=== PATIENT | male | born 1955 | race Caucasian/White ===

== ENCOUNTER 2016-08-11 07:45 | Day surgery (SDC) | payer OTHER ==
[2016-08-05 14:37] VITALS: BMI 41.5
--- NOTE | 2016-08-11 01:52 | P.GSHP ---
History of Present Illness H&P Date: 08/11/16 CHIEF COMPLAINT: GERD and colon screen HISTORY OF PRESENT ILLNESS: The patient is a 60-year-old male who presents reports gastroesophageal reflux disease and need for colon screen. Upper and lower endoscopy were offered for further evaluation and management. PAST MEDICAL HISTORY: Please see list. PAST SURGICAL HISTORY: Please see list. MEDICATIONS: Please see list. ALLERGIES: Please see list. SOCIAL HISTORY: No illicit drug use FAMILY HISTORY: No reports of Crohn disease or ulcerative colitis. REVIEW OF ORGAN SYSTEMS: CONSTITUTIONAL: No reports of fevers or chills. GI: Denies any blood in stools or constipation. PHYSICAL EXAM: VITAL SIGNS: Stable GENERAL: Well-developed pleasant in no acute distress. HEENT: No scleral icterus. Extraocular movements grossly intact. Moist buccal mucosa. NECK: Supple without lymphadenopathy. CHEST: Unlabored respirations. Equal bilateral excursions. CARDIOVASCULAR: Regular rate and rhythm. Distal 2+ pulses. ABDOMEN: Soft, nondistended. MUSCULOSKELETAL: No clubbing, cyanosis, or edema. ASSESSMENT: 1. Gastroesophageal reflux disease 2. Colon screen. PLAN: 1. Recommend proceeding with an upper and lower endoscopy Past Medical History Past Medical History: Hyperlipidemia, Osteoarthritis (OA) Additional Past Medical History / Comment(s): SEASONAL ALLERGIES. LOW IRON- TAKE OTC IRON History of Any Multi-Drug Resistant Organisms: None Reported Past Surgical History: Adenoidectomy, Joint Replacement, Orthopedic Surgery, Tonsillectomy Additional Past Surgical History / Comment(s): STEPHIE KNEE ARTHROSCOPY, SPLEENECTOMY, FOREFINGER LEFT HAND SX, BILAT TKA, Past Anesthesia/Blood Transfusion Reactions: No Reported Reaction Past Psychological History: No Psychological Hx Reported Smoking Status: Former smoker Past Alcohol Use History: None Reported Additional Past Alcohol Use History / Comment(s): STARTED SMOKING AT AGE 16- 1 PPD X 21 YEARS QUIT 1993 Past Drug Use History: None Reported - Past Family History Father Family Medical History: No Reported History Additional Family Medical History / Comment(s): CABG Mother Family Medical History: No Reported History Medications and Allergies Home Medications Medication Instructions Recorded Confirmed Type Loratadine [Claritin] 10 mg PO HS 10/25/14 08/05/16 History Simvastatin [Zocor] 20 mg PO HS 10/25/14 08/05/16 History Ferrous Sulfate [Iron (65 MG 325 mg PO DAILY 08/05/16 08/05/16 History Elemental)] Ibuprofen [Motrin] 800 mg PO DAILY PRN 08/05/16 08/05/16 History Allergies Allergy/AdvReac Type Severity Reaction Status Date / Time No Known Allergies Allergy Verified 08/05/16 14:29
[~2016-08-11 07:45] MED LIST: LACTATED RINGERS 1,000 ML IV SCH; LIDOCAINE 1% 20 ML VIAL (10MG/ML) FOR IV START INTRADERMA PRN
[2016-08-11 09:20] VITALS: TEMP 97
[2016-08-11] MEDS ORDERED: IV FLUID CONTINUATION 1,000 ML IV ONE (10:00)
[2016-08-11] MEDS ORDERED: LIDOCAINE 1% INJ 10MG/ML (20 ML MDV) ONE (10:05)
[2016-08-11] MEDS ORDERED: PROPOFOL 10 MG/ML 20 ML VIAL IV ONE (10:05)
[2016-08-11] MEDS ORDERED: GLYCOPYRROLATE 0.2 MG/ML 2 ML VIAL ONE (10:05)
--- NOTE | 2016-08-11 10:19 | P.PCN ---
Date of Procedure: 08/11/16 Description of Procedure: PREOPERATIVE DIAGNOSIS: Gastroesophageal reflux disease. POSTOPERATIVE DIAGNOSIS: Chronic gastritis superficial, without bleeding. Diaphragmatic hiatal hernia. Gastroesophageal reflux disease. Erosive esophagitis. OPERATION: Esophagogastroduodenoscopy with biopsies along antrum and gastroesophageal junction. SURGEON: Niki Mcmahon MD ANESTHESIA: MAC. INDICATIONS: The patient is a 60-year-old male who presents with a history of reflux disease. Benefits and risks of the procedure were described. Informed consent was obtained. DESCRIPTION: The patient was brought into the endoscopy suite and laid in the left lateral decubitus position. An Olympus gastroscope was passed along the posterior oropharynx down to the distal esophagus where the squamocolumnar junction was encountered at 38 cm from the incisors. The stomach was entered and minimal bile reflux was found. Additional findings are listed below. Biopsies with cold forceps were obtained of the antrum. The first through third portion of the duodenum was examined and unremarkable. Retroflexion of the scope confirmed Hill grade 3 lower esophageal valve. The squamocolumnar junction demostrated acute LA grade B erosive esophagitis. The stomach was desufflated. The patient tolerated the procedure well. FINDINGS: Squamocolumnar junction 38 cm from the incisors. Diaphragmatic hiatus at 40 cm from the incisors. Hill grade 3 lower esophageal valve. LA grade B erosive esophagitis, acute. No active duodenitis. Superficial gastritis. RECOMMENDATIONS: Start medical therapy. Further recommendations pending results of pathology report. Upper endoscopy as needed.
--- NOTE | 2016-08-11 10:38 | P.PCN ---
Date of Procedure: 08/11/16 Description of Procedure: PREOPERATIVE DIAGNOSIS: Colonoscopy screening. POSTOPERATIVE DIAGNOSIS: Colonoscopy screening. Tubular adenoma, sigmoid colon. Anal fissure, acute. OPERATION: Colonoscopy to the ileocecal valve and appendiceal orifice. Colonoscopy with snare polypectomy at 30 cm from the anal verge. SURGEON: Niki Mcmahon MD. ANESTHESIA: MAC. INDICATIONS: The patient is a 60-year-old male who presents for colonoscopy screening. Benefits and risks were described and informed consent was obtained. DESCRIPTION OF PROCEDURE: The patient had undergone Gatorade, MiraLAX and Dulcolax prep. He had been brought into the operating room and laid in the left lateral decubitus position. After adequate intravenous sedation, the rectum was examined with 2% lidocaine jelly. External hemorrhoids were encountered. The rectal tone was within normal limits. The prostate was smooth and without nodularity. No lesions were palpated in the rectal vault. An Olympus colonoscope was advanced until the ileocecal valve and appendiceal orifice were clearly viewed. The prep was fair with visualization of the mucosal folds. The scope was removed with visualization of each mucosal fold. No scattered diverticulosis was encountered. A tubular adenoma at 30 cm from the anal verge was snare polypectomy. No evidence of focal colitis was found. Retroflexion of the scope demonstrated grade 1 internal hemorrhoids without active bleeding or inflammation. Anal fissure was identified. The colon was desufflated. The patient had tolerated the procedure well. Withdrawal time was over 6 minutes. FINDINGS: Internal hemorrhoids, grade 1 External hemorrhoids, grade 2. No arteriovenous malformations. Removal of 1 polyp: - Snare polypectomy 30 cm from the anal verge, 5 mm tubulovillous adenoma polyp. No focal colitis. RECOMMENDATIONS: Repeat lower endoscopy in 5 years, 2021. Plan - Discharge Summary New Discharge Prescriptions: Omeprazole 40 mg PO DAILY #90 capsule. Discharge Medication List Loratadine [Claritin] 10 mg PO HS 10/25/14 [History] Simvastatin [Zocor] 20 mg PO HS 10/25/14 [History] Ferrous Sulfate [Iron (65 MG Elemental)] 325 mg PO DAILY 08/05/16 [History] Ibuprofen [Motrin] 800 mg PO DAILY PRN 08/05/16 [History] Omeprazole 40 mg PO DAILY #90 capsule. 08/11/16 [Rx] Follow up Appointment(s)/Referral(s): Niki Mcmahon MD [STAFF PHYSICIAN] - 08/24/16 ([place], please call to confirm time) Patient Instructions/Handouts: *[facility]gery [facility] - (Anesthesia) Endoscopy Discharge Instructions, Colonoscopy (DC), Hiatal Hernia (GEN), Gastroesophageal Reflux Disease (DC), Esophagitis (DC) Discharge Disposition: HOME SELF-CARE
[2016-08-11 11:01] VITALS: BP 117/79; PULSE 61; RESP 18
== END 2016-08-11 11:43 | disposition home or self-care (01) ==
LOC: ORWHC2ENDO 07:45
PROVIDERS: ATTEND Surgery Plastic and Reconstructive Surgery
DX: Z12.11 Encounter for screening for malignant neoplasm of colon (principal); K29.30 Chronic superficial gastritis without bleeding; K44.9 Diaphragmatic hernia without obstruction or gangrene; K21.0 Gastro-esophageal reflux disease with esophagitis; D12.6 Benign neoplasm of colon, unspecified; K64.0 First degree hemorrhoids; K64.1 Second degree hemorrhoids; K60.0 Acute anal fissure; E78.5 Hyperlipidemia, unspecified; M19.90 Unspecified osteoarthritis, unspecified site; Z79.899 Other long term (current) drug therapy; Z79.1 Long term (current) use of non-steroidal anti-inflammatories (NSAID); Z91.09 Other allergy status, other than to drugs and biological substances; Z87.891 Personal history of nicotine dependence
CPT/HCPCS: 88305; 88312; 88342; 45385; 43239; J2001; J2704

== ENCOUNTER 2021-09-23 06:55 | Day surgery (SDC) | payer MEDICARE, OTHER ==
[~2021-09-23 06:55] MED LIST changes: -LACTATED RINGERS 1,000 ML IV SCH; +LIDOCAINE 1% (10MG/ML) FOR IV START INTRADERMA PRN; -LIDOCAINE 1% 20 ML VIAL (10MG/ML) FOR IV START INTRADERMA PRN
[2021-09-23] MEDS: LACTATED RINGERS 1,000 ML IV SCH ×2 (07:07→07:43)
[2021-09-23 07:27] VITALS: RESP 16; TEMP 97.6
[2021-09-23 07:27] LABS: Glucose,Whole Blood 95 mg/dL (75-99)
[2021-09-23] MEDS ORDERED: PROPOFOL 10 MG/ML 20 ML VIAL IV ONE (07:42)
--- NOTE | 2021-09-23 07:44 | P.GSHP ---
History of Present Illness H&P Date: 09/23/21 CHIEF COMPLAINT: Colon screen HISTORY OF PRESENT ILLNESS: The patient is a 65-year-old male who presents for colon screen. Lower endoscopy was offered for further evaluation and management. PAST MEDICAL HISTORY: Please see list. PAST SURGICAL HISTORY: Please see list. MEDICATIONS: Please see list. ALLERGIES: Please see list. SOCIAL HISTORY: No illicit drug use FAMILY HISTORY: No reports of Crohn disease or ulcerative colitis. REVIEW OF ORGAN SYSTEMS: CONSTITUTIONAL: No reports of fevers or chills. PHYSICAL EXAM: VITAL SIGNS: Stable GENERAL: Well-developed pleasant in no acute distress. HEENT: No scleral icterus. Extraocular movements grossly intact. Moist buccal mucosa. NECK: Supple without lymphadenopathy. CHEST: Unlabored respirations. Equal bilateral excursions. CARDIOVASCULAR: Regular rate and rhythm. Distal 2+ pulses. ABDOMEN: Soft, nontender, nondistended. MUSCULOSKELETAL: No clubbing, cyanosis, or edema. ASSESSMENT: 1. Colon screen. PLAN: 1. Recommend proceeding with a lower endoscopy Past Medical History Past Medical History: Diabetes Mellitus, Hyperlipidemia, Osteoarthritis (OA), Sleep Apnea/CPAP/BIPAP Additional Past Medical History / Comment(s): seasonal allergies, "pre- diabetic", checks BS couple times per week, uses CPAP History of Any Multi-Drug Resistant Organisms: None Reported Past Surgical History: Adenoidectomy, Joint Replacement, Orthopedic Surgery, Tonsillectomy Additional Past Surgical History / Comment(s): STEPHIE KNEE ARTHROSCOPY, SPLENECTOMY, FOREFINGER LEFT HAND SX, BILAT TKA, colonoscopies Past Anesthesia/Blood Transfusion Reactions: No Reported Reaction Smoking Status: Former smoker - Past Family History Father Family Medical History: No Reported History Additional Family Medical History / Comment(s): CABG Mother Family Medical History: No Reported History Medications and Allergies Home Medications Medication Instructions Recorded Confirmed Type Aspirin 81 mg PO DAILY 09/21/21 09/23/21 History Cholecalciferol [Vitamin D3 (125 125 mcg PO DAILY 09/21/21 09/23/21 History Mcg = 5000 Iu)] Eye Health Complex 1 tab PO DAILY 09/21/21 09/23/21 History Fish Oil/Dha/Epa [Fish Oil 1,200 1 each PO DAILY 09/21/21 09/23/21 History mg Fish Oil] Lovastatin [Mevacor] 40 mg PO HS 09/21/21 09/23/21 History Multivitamins, Thera [Multivitamin 1 tab PO DAILY 09/21/21 09/23/21 History (formulary)] Vitamin C W/Zinc 1 tab PO DAILY 09/21/21 09/23/21 History Vits A,C,E/Lutein/Minerals 1 each PO DAILY 09/21/21 09/23/21 History [Ocuvite with Lutein Tablet] Zinc 50 mg PO DAILY 09/21/21 09/23/21 History Allergies Allergy/AdvReac Type Severity Reaction Status Date / Time No Known Allergies Allergy Verified 09/23/21 07:12 Surgical - Exam Vital Signs Temp Pulse Resp BP Pulse Ox 97.6 F 59 L 16 109/62 98 09/23/21 07:13 09/23/21 07:13 09/23/21 07:13 09/23/21 07:13 09/23/21 07:13
[2021-09-23 08:24] VITALS: BP 138/79; PULSE 54
--- NOTE | 2021-09-23 08:51 | P.PCN ---
Date of Procedure: 09/23/21 Description of Procedure: PREOPERATIVE DIAGNOSIS: Personal history of colon polyps Family history malignant colon polyps Colonoscopy screening POSTOPERATIVE DIAGNOSIS: Tubular adenoma ascending colon Sigmoid diverticulosis OPERATION: Colonoscopy to the ileocecal valve and appendiceal orifice, cecum Colonoscopy with cold forceps biopsy SURGEON: Niki Mcmahon MD. ANESTHESIA: MAC. INDICATIONS: The patient is an 65-year-old male who presents family history of malignant colon polyps and personal history of colon polyps. Last colonoscopy 5 years. Benefits and risks were described and informed consent was obtained. DESCRIPTION OF PROCEDURE: The patient had undergone Sutab prep. The patient had been brought into the operating room and laid in the left lateral decubitus position. After adequate intravenous sedation, the rectum was examined with 2% lidocaine jelly. The prostate was unremarkable. No external hemorrhoids were encountered. The rectal tone was within normal limits. No lesions were palpated in the rectal vault. An Olympus colonoscope was advanced until the cecum, ileocecal valve and appendiceal orifice were clearly viewed. The prep was excellent. Sigmoid diverticulosis was encountered. Colonic polyps were found and removed. No evidence of focal colitis was found. Retroflexion of the scope demonstrated grade 1 internal hemorrhoids without active bleeding or inflammation. The colon was desufflated. The patient had tolerated the procedure well. Withdrawal time was over 6 minutes. FINDINGS: Aronchick preparation quality scale 1 (1-5) Internal hemorrhoids, grade 1 No external hemorrhoids No arteriovenous malformations. Sigmoid diverticulosis Removal of 1 polyps: - Cold forceps biopsy at ascending colon, 5 mm polyp. No focal colitis. RECOMMENDATIONS: Repeat colonoscopy in 3 years, 2024 Plan - Discharge Summary Discharge Rx Participant: No New Discharge Prescriptions: Continue Multivitamins, Thera [Multivitamin (formulary)] 1 tab PO DAILY Cholecalciferol [Vitamin D3 (125 Mcg = 5000 Iu)] 125 mcg PO DAILY Aspirin 81 mg PO DAILY Vits A,C,E/Lutein/Minerals [Ocuvite with Lutein Tablet] 1 each PO DAILY Vitamin C W/Zinc 1 tab PO DAILY Lovastatin [Mevacor] 40 mg PO HS Zinc 50 mg PO DAILY Fish Oil/Dha/Epa [Fish Oil 1,200 mg Fish Oil] 1 each PO DAILY Eye Health Complex 1 tab PO DAILY Discharge Medication List Aspirin 81 mg PO DAILY 09/21/21 [History] Cholecalciferol [Vitamin D3 (125 Mcg = 5000 Iu)] 125 mcg PO DAILY 09/21/21 [History] Eye Health Complex 1 tab PO DAILY 09/21/21 [History] Fish Oil/Dha/Epa [Fish Oil 1,200 mg Fish Oil] 1 each PO DAILY 09/21/21 [History] Lovastatin [Mevacor] 40 mg PO HS 09/21/21 [History] Multivitamins, Thera [Multivitamin (formulary)] 1 tab PO DAILY 09/21/21 [History] Vitamin C W/Zinc 1 tab PO DAILY 09/21/21 [History] Vits A,C,E/Lutein/Minerals [Ocuvite with Lutein Tablet] 1 each PO DAILY 09/21/21 [History] Zinc 50 mg PO DAILY 09/21/21 [History] Follow up Appointment(s)/Referral(s): Niki Mcmahon MD [STAFF PHYSICIAN] - As Needed Patient Instructions/Handouts: *[facility] - (Anesthesia) Endoscopy Discharge Instructions, Colonoscopy (GEN), Colorectal Polyps (GEN), Diverticulosis Diet (GEN), Diverticulosis (DC) Activity/Diet/Wound Care/Special Instructions: Repeat colonoscopy in 3 years, 2024 Discharge Disposition: HOME SELF-CARE
== END 2021-09-23 09:08 | disposition home or self-care (01) ==
LOC: ORWHC2ENDO 06:55
PROVIDERS: ATTEND Surgery Plastic and Reconstructive Surgery
DX: Z12.11 Encounter for screening for malignant neoplasm of colon (principal); D12.2 Benign neoplasm of ascending colon; K57.30 Diverticulosis of large intestine without perforation or abscess without bleeding; E11.9 Type 2 diabetes mellitus without complications; E78.5 Hyperlipidemia, unspecified; G47.30 Sleep apnea, unspecified; M19.90 Unspecified osteoarthritis, unspecified site; Z79.82 Long term (current) use of aspirin; Z80.0 Family history of malignant neoplasm of digestive organs; Z86.010 Personal history of colon polyps; Z83.71 Family history of colonic polyps; Z87.891 Personal history of nicotine dependence; Z96.653 Presence of artificial knee joint, bilateral
CPT/HCPCS: 45380; 88305; J2704